=== PATIENT | female | born 1965 | race Caucasian/White ===

== ENCOUNTER → 2017-02-21 | Outpatient (CLI) | payer OTHER | LOC: WI 11:25 | PROVIDERS: ATTEND Obstetrics & Gynecology | DX: Z12.31 Encounter for screening mammogram for malignant neoplasm of breast (principal) ==

== ENCOUNTER 2018-04-25 08:56 | Emergency (ER) | payer OTHER ==
[2018-04-25] MEDS ORDERED: NORMAL SALINE 1000 ML 1,000 ML IV ONE (09:27)
[2018-04-25] MEDS ORDERED: DICYCLOMINE HCL 20 MG TABLET PO ONE (09:33)
--- NOTE | 2018-04-25 09:41 | ER Document Report ---
ED General - General Chief Complaint: Rectal Bleeding Stated Complaint: RECTAL BLEEDING Time Seen by Provider: 04/25/18 09:27 Primary Care Provider: AYO ALFONSO MD [Primary Care Provider] - Follow up as needed TRAVEL OUTSIDE OF THE [place] IN LAST 30 DAYS: No - HPI Notes: Patient is a 52-year-old female that presents to the emergency department for chief complaint of abdominal cramping and bloody diarrhea. Patient states she woke up this morning at 4 AM with severe abdominal cramping. It is intermittent and diffuse across her upper abdomen. She states now the pain is starting to localize more in her lower abdomen. She reports a few normal loose bowel movements this morning which then became bloody. She now states that there is a small continual bright red bleed. She denied any pain in her rectum with bowel movement. She states she was initially nauseated and had one episode of emesis. Her nausea has improved and she has not vomited since then. She did take Imodium at 7 AM this morning which she reports helped to the cramping. She denies history of abdominal issues in the past but does have a son with ulcerative colitis. She denies fevers, chills, chest pain and shortness of breath. She has not had any recent antibiotics or travel Past Medical History: Hypertension Past Surgical History: Negative Social History: Daily tobacco, almost daily alcohol, denies drug use Family History: Reviewed and noncontributory for presenting illness Allergies: Reviewed, see documented allergy list. REVIEW OF SYSTEMS: CONSTITUTIONAL : No fever No chills No diaphoresis No recent illness EENT: No vision changes No congestion No sore throat CARDIOVASCULAR: No chest pain No palpitations RESPIRATORY: No shortness of breath No cough No difficulty breathing GASTROINTESTINAL: abdominal pain nausea vomiting diarrhea GENITOURINARY: No dysuria No hematuria No difficulty urinating MUSCULOSKELETAL: No back pain No leg pain No arm pain SKIN: No rashes No lesions LYMPHATIC: No swollen, enlarged glands. NEUROLOGICAL: No lightheadedness No headache No weakness No paresthesias PSYCHIATRIC: No anxiety No depression PHYSICAL EXAMINATION: Vital signs reviewed, nursing noted reviewed. GENERAL: Well-appearing, well-nourished and in no acute distress. HEAD: Atraumatic, normocephalic. EYES: Eyes appear normal, extraocular movements intact, sclera anicteric, conjunctiva are normal. ENT: nares patent, oropharynx clear without exudates. Moist mucous membranes. NECK: Normal range of motion, supple without lymphadenopathy LUNGS: Breath sounds clear to auscultation bilaterally and equal. No wheezes ra les or rhonchi. HEART: Regular rate and rhythm without murmurs ABDOMEN: Soft, mild diffuse tenderness worse in the left lower quadrant. No rebound, guarding, or rigidity. No masses appreciated. EXTREMITIES: Nontender, good range of motion, no pitting or edema. NEUROLOGICAL: No focal neurological deficits. Moves all extremities spontaneously Motor and sensory grossly intact on exam. PSYCH: Normal mood, normal affect. SKIN: Warm, Dry, normal turgor, no rashes or lesions noted on exposed skin - Related Data Allergies/Adverse Reactions: No Known Allergies Allergy (Unverified 04/25/18 10:00) Past Medical History - Social History Smoking Status: Current Every Day Smoker Family History: Other - Son has ulcerative colitis Physical Exam - Vital signs Vitals: Temp Pulse Resp BP Pulse Ox 98.5 F 88 16 126/81 H 98 04/25/18 09:08 04/25/18 09:08 04/25/18 09:08 04/25/18 09:08 04/25/18 09:08 Course - Re-evaluation Re-evalutation: 04/25/18 09:41 Vitals reviewed. Nursing notes reviewed. Patient given IV fluids Zofran and Bentyl for symptomatic management. 04/25/18 12:12 Patient's lab work shows a mild leukocytosis with no shift and is otherwise unremarkable. She has normal kidney function and does not appear dehydrated. Her electrolytes are normal. Patient CT scan shows inflammatory colitis changes. She does have a son with ulcerative colitis but has never been diagnosed herself. She will be referred to GI for further management and possible colonoscopy. She will be given Bentyl for pain control at home. She was given return precautions. She is stable at discharge. Laboratory 04/25/18 04/25/18 09:56 09:56 WBC 12.6 H RBC 4.90 Hgb 15.2 Hct 45.0 MCV 92 MCH 31.0 MCHC 33.8 RDW 12.8 Plt Count 433 Seg Neutrophils % 80.6 H Lymphocytes % 13.2 Monocytes % 5.1 Eosinophils % 0.8 Basophils % 0.3 Absolute Neutrophils 10.1 H Absolute Lymphocytes 1.7 Absolute Monocytes 0.6 Absolute Eosinophils 0.1 Absolute Basophils 0.0 Sodium 140.8 Potassium 4.5 Chloride 102 Carbon Dioxide 30 Anion Gap 9 BUN 17 Creatinine 0.74 Est GFR ( Amer) > 60 Est GFR (Non-Af Amer) > 60 Glucose 100 Calcium 10.1 Total Bilirubin 0.5 Direct Bilirubin 0.2 Neonat Total Bilirubin Not Reportable Neonat Direct Bilirubin Not Reportable Neonat Indirect Bili Not Reportable AST 26 ALT 24 Alkaline Phosphatase 65 Total Protein 7.5 Albumin 4.8 Lipase 147.1 Abdomen/Pelvis CT 04/25/18 09:33 IMPRESSION: There is bowel wall thickening of the descending colon, sigmoid, and rectum, consistent with nonspecific infectious or inflammatory colitis. This pattern of inflammation can be seen in inflammatory bowel disease such as ulcerative colitis. Correlate for referable clinical history if present. - Vital Signs Vital signs: Temp Pulse Resp BP Pulse Ox 98.5 F 88 16 126/81 H 98 04/25/18 09:08 04/25/18 09:08 04/25/18 09:08 04/25/18 09:08 04/25/18 09:08 - Laboratory Result Diagrams: 04/25/18 09:56 04/25/18 09:56 Laboratory results interpreted by me: 04/25/18 09:56 WBC 12.6 H Seg Neutrophils % 80.6 H Absolute Neutrophils 10.1 H Discharge - Discharge Clinical Impression: Colitis, Bloody diarrhea Condition: Stable Disposition: HOME, SELF-CARE Instructions: Colitis, Nonspecific ([facility]) Additional Instructions: Please return to the emergency department if you have any worsening, or concern of your symptoms. Please return to the emergency department if you develop chest pain, difficulty breathing, severe abdominal pain, or ongoing vomiting. Please follow-up with your primary care physician in 2-3 days and any other recommended physicians. If prescribed, take all medications as directed. If you have any questions or concerns do not hesitate to return the emergency department for evaluation. Prescriptions: Dicyclomine HCl [Bentyl 10 mg Capsule] 1 cap PO TID PRN #30 cap PRN Reason: Abdominal Cramping Referrals: AYO ALFONSO MD [Primary Care Provider] - Follow up as needed ZEUS KENYON MD [ACTIVE STAFF] - Follow up in 3-5 days
[2018-04-25] MEDS: ONDANSETRON HCL INJ/PF 4 MG/2 ML SDV IV ONE ×2 (10:02→10:04)
[2018-04-25 10:17] LABS: ABSOLUTE EOSINOPHILS # (AUTO) 0.1 10^3/uL (0.0-0.6); ABSOLUTE LYMPHOCYTES (AUTO) 1.7 10^3/uL (0.5-4.7); ABSOLUTE MONOCYTES (AUTO) 0.6 10^3/uL (0.1-1.4); ABSOLUTE NEUT (AUTO) 10.1 10^3/uL (1.7-8.2); BASOPHILS % (AUTO) 0.3 % (0-2); EOSINOPHILS % (AUTO) 0.8 % (0-6); HEMOGLOBIN 15.2 g/dL (12.0-15.5); LYMPHOCYTES % (AUTO) 13.2 % (13-45); MEAN CORPUSCULAR HGB CONC 33.8 g/dL (32.0-36.0); MEAN CORPUSCULAR VOLUME 92 fl (80-97); MONOCYTES % (AUTO) 5.1 % (3-13); PLATELET COUNT 433 10^3/uL (150-450); RED CELL DISTRIBUTION WIDTH 12.8 % (11.5-14.0); SEGMENTED NEUTROPHILS % (AUTO) 80.6 % (42-78); TOTAL CELLS COUNTED % (AUTO) 100 %; WHITE BLOOD COUNT 12.6 10^3/uL (4.0-10.5)
[2018-04-25 10:39] LABS: ALANINE AMINOTRANSFERASE 24 U/L (9-52); ALBUMIN 4.8 g/dL (3.5-5.0); ALKALINE PHOSPHATASE 65 U/L (38-126); ANION GAP 9 (5-19); ASPARTATE AMINO TRANSFERASE 26 U/L (14-36); BILIRUBIN,DIRECT 0.2 mg/dL (0.0-0.4); BILIRUBIN,TOTAL 0.5 mg/dL (0.2-1.3); BLOOD UREA NITROGEN 17 mg/dL (7-20); CALCIUM 10.1 mg/dL (8.4-10.2); CARBON DIOXIDE 30 mmol/L (22-30); CHLORIDE 102 mmol/L (98-107); GLUCOSE 100 mg/dL (75-110); LIPASE 147.1 U/L (23-300); POTASSIUM 4.5 mmol/L (3.6-5.0); SODIUM 140.8 mmol/L (137-145); TOTAL PROTEIN 7.5 g/dL (6.3-8.2)
--- NOTE | 2018-04-25 11:55 | RADIOLOGY REPORT (SQ) ---
EXAM DESCRIPTION: CT ABD/PELVIS WITH IV ONLY COMPLETED DATE/TIME: 04/25/2018 11:37 am REASON FOR STUDY: LLQ pain COMPARISON: None. TECHNIQUE: CT scan of the abdomen and pelvis performed using helical scanning technique with dynamic intravenous contrast injection. No oral contrast. Images reviewed with lung, soft tissue, and bone windows. Reconstructed coronal and sagittal MPR images reviewed. Delayed images for evaluation of the urinary system also acquired. All images stored on PACS. All CT scanners at this facility use dose modulation, iterative reconstruction, and/or weight based d osing when appropriate to reduce radiation dose to as low as reasonably achievable (ALARA). [facility]: Dose Right [facility]: CareDose [facility]: Dose Right [facility]: Teradose 4D [facility]: [employer] CONTRAST TYPE AND DOSE: contrast/concentration: Isovue 350.00 mg/ml; Total Contrast Delivered: 70.0 ml; Total Saline Delivered: 52.0 ml RENAL FUNCTION: GFR > 60. RADIATION DOSE: CT Rad equipment meets quality standard of care and radiation dose reduction techniq ues were employed. CTDIvol: NaN - NaN mGy. DLP: 0 mGy-cm.. LIMITATIONS: None. FINDINGS: LOWER CHEST: No significant findings. No nodules or infiltrates. LIVER: Normal size. No masses. No dilated ducts. SPLEEN: Normal size. No focal lesions. PANCREAS: No masses. No significant calcifications. No adjacent inflammation or peripancreatic fluid collections. Pancreatic duct not dilated. GALLBLADDER: No identified stones by CT criteria. No inflammatory changes to suggest cholecystitis. ADRENAL GLANDS: No significant masses or asymmetry. RIGHT KIDNEY AND URETER: No solid masses. No significant calcifications. No hydronephrosis or hyd roureter. LEFT KIDNEY AND URETER: No solid masses. No significant calcifications. No hydronephrosis or hydr oureter. AORTA AND VESSELS: No aneurysm. No dissection. Renal arteries, SMA, celiac without stenosis. RETROPERITONEUM: No retroperitoneal adenopathy, hemorrhage or masses. BOWEL AND PERITONEAL CAVITY: There is bowel wall thickening of the descending colon, sigmoid, and rec cornel. No free fluid or peritoneal masses. APPENDIX: Normal. PELVIS: No mass. No free fluid. Normal bladder. ABDOMINAL WALL: No masses. No hernias. BONES: No significant or acute findings. OTHER: No other significant finding. IMPRESSION: There is bowel wall thickening of the descending colon, sigmoid, and rectum, consistent with nonspecific infectious or inflammatory colitis. This pattern of inflammation can be seen in inf lammatory bowel disease such as ulcerative colitis. Correlate for referable clinical history if pres ent. TECHNICAL DOCUMENTATION: JOB ID: [id number] Quality ID # [id number]: Final reports with documentation of one or more dose reduction techniques (e.g., Au tomated exposure control, adjustment of the mA and/or kV according to patient size, use of iterative reconstruction technique) 2010 [employer]- All Rights Reserved Reading location - IP/workstation name: [email or web address]
[2018-04-25 12:41] VITALS: BP 136/87
== END 2018-04-25 12:40 | disposition home or self-care (01) ==
LOC: ER 08:56
DX: K52.9 Noninfective gastroenteritis and colitis, unspecified (principal); R19.5 Other fecal abnormalities; R19.7 Diarrhea, unspecified; K62.5 Hemorrhage of anus and rectum; R10.9 Unspecified abdominal pain; R10.30 Lower abdominal pain, unspecified; R11.2 Nausea with vomiting, unspecified; I10 Essential (primary) hypertension
CPT/HCPCS: 99284; 96360; 36415; 83690; 85025; 80053; 74177; J3490; J7030; J2405

== ENCOUNTER 2018-05-20 07:30 | Day surgery (SDC) | payer OTHER ==
[2018-05-20] MEDS ORDERED: PROPOFOL INJ 200 MG/20 ML VIAL IV ONE ×2 (07:31→08:51)
[2018-05-20 09:22] VITALS: BP 113/78
--- NOTE | 2018-05-20 12:32 | Operative Report ---
Operative Report DATE OF SURGERY: 05/20/18 Operative Report: The risks, benefits and alternatives of the procedure including the risk of bleeding, perforation requiring surgery have been explained to the patient in detail and informed consent has been obtained. Patient is placed in a left, lateral decubital position. Timeout was called. Propofol medication is administered. Rectal examination is done which did not reveal any masses, tears or fissures. An Olympus videoscope was introduced into the patient's rectum. The scope was then carefully advanced all the way to the cecum. Cecum was identified by the usual anatomical landmarks of the ileocecal valve as well as the appendiceal office. Photodocumentation was obtained. Scope was then sequentially pulled back via the various segments of the colon including the ascending colon, hepatic flexure, transverse colon, splenic flexure, descending colon and finally into the rectosigmoid portions of the colon. Retroflexion maneuver was performed. PREOPERATIVE DIAGNOSIS: Colorectal cancer screening POSTOPERATIVE DIAGNOSIS: Sessile polyp in the descending colon removed via snare polypectomy. Diverticulosis without any evidence of diverticulitis. Mild internal hemorrhoids OPERATION: Colonoscopy with snare polypectomy SURGEON: ZEUS KENYON ANESTHESIA: LMAC TISSUE REMOVED OR ALTERED: As noted above. COMPLICATIONS: None. ESTIMATED BLOOD LOSS: None. INTRAOPERATIVE FINDINGS: As noted above. PROCEDURE: Patient tolerated the procedure well. No immediate postprocedure comp occasions are noted. Patient discharged in good condition. Discharge date 05/20/2018. Discharge diet: Regular. Discharge activity: Regular. 2-3-week follow-up to discuss findings. Patient is instructed call the office or proceed to the emergency room should there be any further proximal questions. I will wait to pathology. 3-5-year surveillance colonoscopy.
== END 2018-05-20 09:30 | disposition home or self-care (01) ==
LOC: END 07:30
PROVIDERS: ATTEND Internal Medicine Gastroenterology
DX: Z12.11 Encounter for screening for malignant neoplasm of colon (principal); K57.30 Diverticulosis of large intestine without perforation or abscess without bleeding; D12.4 Benign neoplasm of descending colon; K64.8 Other hemorrhoids; I10 Essential (primary) hypertension; F17.210 Nicotine dependence, cigarettes, uncomplicated
CPT/HCPCS: 45385; J2704